=== PATIENT | male | born 1990 | race American Indian/Alaskan Native ===

== ENCOUNTER 2018-09-20 02:25 | Emergency (ER) | payer SELFPAY ==
[2018-09-20 03:03] VITALS: BP 121/81
== END 2018-09-20 03:32 | disposition left against medical advice (07) ==
LOC: ED 02:25
DX: R45.851 Suicidal ideations (principal); Z53.21 Procedure and treatment not carried out due to patient leaving prior to being seen by health care provider

== ENCOUNTER 2021-06-23 11:34 | Emergency (ER) | payer SELFPAY ==
[2021-06-23] MEDS: KETOROLAC 10 MG TAB PO ONE (16:56)
[2021-06-23] MEDS: DEXAMETHASONE 4 MG TAB PO ONE (16:56)
--- NOTE | 2021-06-23 17:18 | XRay Report ---
CHEST 2 VIEWS INDICATION / CLINICAL INFORMATION: chest pain. COMPARISON: 06/18/2019 FINDINGS: SUPPORT DEVICES: None. HEART / MEDIASTINUM: No significant abnormality. LUNGS / PLEURA: No significant pulmonary or pleural abnormality. No pneumothorax. ADDITIONAL FINDINGS: No significant additional findings. IMPRESSION: 1. No acute findings. Signer Name: Aidan Aranda MD Signed: 06/23/2021 5:14 PM Workstation Name: [id number]
[2021-06-23 17:59] LABS: Bilirubin,Urine NEG (Negative); Blood,Urine MOD (Negative); Color,Urine Straw (Yellow); Protein,Urine <15 mg/dL mg/dL (Negative); Urobilinogen,Urine < 2.0 mg/dL (<2.0); WBC,Urine < 1.0 /HPF (0.0-6.0)
[2021-06-23 18:38] LABS: Hematocrit 43.1 % (35.5-45.6); Hemoglobin 14.5 gm/dl (11.8-15.2); Mean Corpuscular HGB Conc 34 % (32-34); Mean Corpuscular Volume 101 fl (84-94); Platelet Count 137 K/mm3 (140-440); Red Blood Count 4.26 M/mm3 (3.65-5.03); Red Cell Distribution Width 13.6 % (13.2-15.2)
[2021-06-23 18:55] LABS: Alanine Aminotransferase 20 units/L (7-56); Albumin 4.4 g/dL (3.9-5); BUN/Creatinine Ratio 13; Blood Urea Nitrogen 10 mg/dL (9-20); Calcium 9.6 mg/dL (8.4-10.2); Hemolysis Index 7
--- NOTE | 2021-06-23 19:46 | Emergency Department Report ---
ED Chest Pain HPI - General Chief Complaint: Chest Pain Stated Complaint: CHEST PAIN/LETHARGIC Time Seen by Provider: 06/23/21 16:48 Source: EMS Mode of arrival: Stretcher Limitations: No Limitations - History of Present Illness Initial Comments: 31-year-old black male with a past medical history of hypertension and asthma presents to the emergency department for evaluation of chest pain, shortness of breath, and fatigue. He states that he started having chest pain about a week ago but it was only to his right side but when he woke up this morning, he had left chest pain that radiated down his left arm with some dizziness and abdominal pain. He states that he felt like his blood pressure was also elevated. He states pain was 7 out of 10, felt like an intense pressure, and was worse with deep breathing and palpation. He denies nausea, diaphoresis, cough, congestion, and sick contacts. MD Complaint: chest pain -: Gradual, week(s) (1) Onset: during rest Pain Location: left chest Pain Radiation: LUE Severity: moderate Severity scale (0 -10): 7 Quality: pressure Consistency: intermittent Worsens With: inspiration, palpation, movement re: nausea, dyspnea. denies: vomting, diaphoresis, sense of impending doom Other Symptoms: denies: cough, fever, syncope, rash, acid taste in mouth, leg swelling, palpitations, burping Treatments Prior to Arrival: none - Related Data Previous Rx's Medication Instructions Recorded Last Taken Type Albuterol Mdi (or & Nicu Only) 2 puff IH Q4HR PRN #1 inhalation 06/18/19 Unknown Rx [ProAir HFA Inhaler] Benzonatate [Tessalon Perles] 100 mg PO Q8HR PRN #20 capsule 06/18/19 Unknown Rx Fluticasone [Flonase] 1 spray NS QDAY #1 bottle 06/18/19 Unknown Rx predniSONE [Deltasone] 20 mg PO DAILY #15 tablet 06/18/19 Unknown Rx traMADoL [Ultram] 50 mg PO Q6HR PRN #15 tablet 06/18/19 Unknown Rx methylPREDNISolone [Medrol 4MG 4 mg PO DAILY #1 pack 06/23/21 Unknown Rx DOSEPAK (21 tabs)] Allergies Allergy/AdvReac Type Severity Reaction Status Date / Time No Known Allergies Allergy Verified 09/20/18 03:06 Heart Score - HEART Score History: Slightly suspicious EKG: Normal Age: < 45 Risk factors: 1-2 risk factors Troponin: < normal limit HEART Score: 1 - EKG Read Time Time EKG Completed: 11:40 EKG Read Time: 11:45 - Critical Actions Critical Actions: 0-3 pts:0.9-1.7%risk of adverse cardiac event.Candidate for discharge ED Review of Systems ROS: Stated complaint: CHEST PAIN/LETHARGIC Other details as noted in HPI Comment: All other systems reviewed and negative Constitutional: malaise. denies: chills, fever Respiratory: shortness of breath, SOB with exertion, SOB at rest. denies: cough, orthopnea, wheezing Cardiovascular: chest pain, dyspnea on exertion. denies: palpitations, orthopnea, edema, syncope, paroxysmal nocturnal dyspnea Gastrointestinal: abdominal pain, nausea. denies: vomiting, diarrhea, h ematemesis, melena, hematochezia Genitourinary: denies: urgency, dysuria, frequency, hematuria, discharge, testicular pain Musculoskeletal: denies: back pain Skin: denies: rash, lesions Neurological: denies: headache, weakness, numbness, paresthesias, confusion, abnormal gait, vertigo ED Past Medical Hx - Past Medical History Hx Hypertension: Yes Hx Psychiatric Treatment: Yes (schizo and bipolar) Hx Asthma: Yes - Social History Smoking Status: Current Every Day Smoker Substance Use Type: None - Medications Home Medications: Home Medications Medication Instructions Recorded Confirmed Last Taken Type Albuterol Mdi (or & Nicu Only) 2 puff IH Q4HR PRN #1 inhalation 06/18/19 Unknown Rx [ProAir HFA Inhaler] Benzonatate [Tessalon Perles] 100 mg PO Q8HR PRN #20 capsule 06/18/19 Unknown Rx Fluticasone [Flonase] 1 spray NS QDAY #1 bottle 06/18/19 Unknown Rx predniSONE [Deltasone] 20 mg PO DAILY #15 tablet 06/18/19 Unknown Rx traMADoL [Ultram] 50 mg PO Q6HR PRN #15 tablet 06/18/19 Unknown Rx methylPREDNISolone [Medrol 4MG 4 mg PO DAILY #1 pack 06/23/21 Unknown Rx DOSEPAK (21 tabs)] ED Physical Exam - General Limitations: No Limitations General appearance: alert, in no apparent distress - Head Head exam: Present: atraumatic, normocephalic - Eye Eye exam: Present: normal appearance. Absent: conjunctival injection - Neck Neck exam: Present: normal inspection. Absent: tenderness - Respiratory Respiratory exam: Present: normal lung sounds bilaterally, chest wall tenderness. Absent: respiratory distress, wheezes, rales, rhonchi, accessory muscle use - Cardiovascular Cardiovascular Exam: Present: bradycardia, normal heart sounds - GI/Abdominal GI/Abdominal exam: Present: soft, normal bowel sounds. Absent: distended, tenderness, guarding, rebound, rigid - Extremities Exam Extremities exam: Present: normal inspection - Back Exam Back exam: Present: normal inspection. Absent: tenderness, CVA tenderness (R), CVA tenderness (L) - Neurological Exam Neurological exam: Present: alert, oriented X3, normal gait. Absent: motor sensory deficit - Psychiatric Psychiatric exam: Present: normal affect, normal mood - Skin Skin exam: Present: warm, dry, intact, normal color ED Course Vital Signs 06/23/21 12:02 Temperature 97.7 F Pulse Rate 53 L Respiratory 16 Rate Blood Pressure 134/74 [Right] O2 Sat by Pulse 98 Oximetry - Reevaluation(s) Reevaluation #1: 06/23/21 19:41 Chest pain improved. ED Medical Decision Making - Lab Data Result diagrams: 06/23/21 17:38 06/23/21 17:38 - EKG Data Interpretation: no acute changes - Radiology Data Radiology results: report reviewed, image reviewed Chest x-ray: FINDINGS: SUPPORT DEVICES: None. HEART / MEDIASTINUM: No significant abnormality. LUNGS / PLEURA: No significant pulmonary or pleural abnormality. No pneumothorax. ADDITIONAL FINDINGS: No significant additional findings. IMPRESSION: 1. No acute findings. - Medical Decision Making 31-year-old black male with a past medical history of hypertension and asthma presents to the emergency department for evaluation of chest pain, shortness of breath, and fatigue. He states that he started having chest pain about a week ago but it was only to his right side but when he woke up this morning, he had left chest pain that radiated down his left arm with some dizziness and abdominal pain. He states that he felt like his blood pressure was also elevated. He states pain was 7 out of 10, felt like an intense pressure, and was worse with deep breathing and palpation. He denies nausea, diaphoresis, cough, congestion, and sick contacts. Patient noted to have tenderness with any palpation to chest on exam. Chest pain also increases with movement of arms. EKG without any acute ischemic c hanges, troponin within normal limits, and pain improved after medications. Chest x-ray within normal limits. Heart score 1. Low suspicion for CAD. Patient will be treated for pleuritic chest pain with a Medrol Dosepak and advised to follow-up with primary care provider or cardiology if no improvement or worsening symptoms. He verbalized understanding of and agreement with plan of care. - Differential Diagnosis CT, pneumonia, costochondritis Critical care attestation.: If time is entered above; I have spent that time in minutes in the direct care of this critically ill patient, excluding procedure time. ED Disposition Clinical Impression: Pleuritic chest pain Disposition: HOME / SELF CARE / HOMELESS Is pt being admited?: No Does the pt Need Aspirin: No Condition: Stable Instructions: Chest Wall Pain, [id number], Nonspecific Chest Pain, Adult, [id number], Pleurisy, [id number] Additional Instructions: Take medications as prescribed. Follow-up with primary care or cardiology for further evaluation and management. Return to the emergency department for any concerning symptoms. Prescriptions: methylPREDNISolone [Medrol 4MG DOSEPAK (21 tabs)] 4 mg PO DAILY #1 pack Referrals: ILIANA ESTEVEZ MD [Referring] - 3-5 Days BARRY BRIGGS MD [Staff Physician] - 3-5 Days Forms: Work/School Release Form(ED) Time of Disposition: 19:49
[2021-06-23 20:36] VITALS: BP 132/77
--- NOTE | 2021-06-25 14:16 | Electrocardiograph Report ---
[facility] Test Date: 2021-06-23 Test Time: 11:39:15 Pat Name: FRANNIE CUETO Department: Room: Gender: M [employer] Mechanic: SALINA : [id number] Requested By: CRISTAL PERKINS Order Number: [id number] Reading MD: Jesi Alves Measurements Intervals Burns Rate: 50 P: 76 WA: 167 QRS: 69 QRSD: 93 T: 51 QT: 418 QTc: 380 Interpretive Statements Sinus bradycardia Otherwise normal ECG No previous ECG available for comparison Electronically Signed On 06-25-2021 14:15:54 EDT by Jesi Alves
== END 2021-06-23 20:36 | disposition home or self-care (01) ==
LOC: ED 11:34
DX: R07.81 Pleurodynia (principal); R06.02 Shortness of breath; R53.83 Other fatigue; I10 Essential (primary) hypertension; F20.9 Schizophrenia, unspecified; J45.909 Unspecified asthma, uncomplicated; F17.200 Nicotine dependence, unspecified, uncomplicated; Z79.899 Other long term (current) drug therapy
CPT/HCPCS: 36415; 71046; 80053; 81001; 83690; 84484; 85027; 93005; 99284; J8540

== ENCOUNTER 2021-09-04 11:13 | Emergency (ER) | payer SELFPAY ==
[2021-09-04 11:22] VITALS: BP 121/77
== END 2021-09-04 12:30 | disposition left against medical advice (07) ==
LOC: ED 11:13
DX: R53.1 Weakness (principal); Z53.21 Procedure and treatment not carried out due to patient leaving prior to being seen by health care provider